=== PATIENT | female | born 1980 | race Caucasian/White ===

== ENCOUNTER 2018-08-06 17:50 | Emergency (ER) | payer MEDICARE ==
[~2018-08-06] VITALS: Ht 160 cm; Wt 68.5 kg
[~2018-08-06 17:50] MED LIST: QUET400T PO
[2018-08-06 18:31] VITALS: BP 171/116
[2018-08-06 19:59] LABS: APPEARANCE,URINE CLEAR (CLEAR); BILIRUBIN,URINE NEGATIVE (NEGATIVE); BLOOD, URINE NEGATIVE (NEGATIVE); COLOR,URINE YELLOW (YELLOW); LEUKOCYTE ESTERASE ,URINE TRACE (NEGATIVE); NITRITE, URINE NEGATIVE (NEGATIVE); UGLUCOSE NEGATIVE (NEGATIVE)
[2018-08-06 20:01] LABS: RBC,URINE 0-5 (RARE) /HPF (0-5); WBC,URINE 0-5 (RARE) /HPF (0-5)
[2018-08-06 21:02] VITALS: BP 177/118
== END 2018-08-06 21:02 | disposition left against medical advice (07) ==
LOC: MED 17:50
DX: O26.892 Other specified pregnancy related conditions, second trimester (principal); R10.32 Left lower quadrant pain; F31.9 Bipolar disorder, unspecified; I10 Essential (primary) hypertension; Z3A.16 16 weeks gestation of pregnancy; Z79.899 Other long term (current) drug therapy; Z53.21 Procedure and treatment not carried out due to patient leaving prior to being seen by health care provider
CPT/HCPCS: 81001

== ENCOUNTER 2018-10-26 14:45 | Inpatient (IN) | payer BC, MEDICAID ==
[~2018-10-26] VITALS: Ht 160 cm; Wt 68.0 kg
[2018-10-26 15:19] VITALS: BP 155/95
[2018-10-26 15:56] LABS: APPEARANCE,URINE CLEAR (CLEAR); BILIRUBIN,URINE NEGATIVE (NEGATIVE); BLOOD, URINE NEGATIVE (NEGATIVE); COLOR,URINE YELLOW (YELLOW); LEUKOCYTE ESTERASE ,URINE NEGATIVE (NEGATIVE); NITRITE, URINE NEGATIVE (NEGATIVE); RBC,URINE 0-5 (RARE) /HPF (0-5); UGLUCOSE NEGATIVE (NEGATIVE); WBC,URINE 0-5 (RARE) /HPF (0-5)
[2018-10-26 16:03] LABS: BARBITURATE, URINE NEG. ng/ml (NEG <=200); BENZODIAZEPINE, URINE NEG. ng/mL (NEG <=200); CANNABINOID, URINE NEG. ng/mL (NEG <=50); COCAINE, URINE NEG. ng/mL (NEG <=300); OPIATE, URINE NEG. ng/mL (NEG <=2000); PHENCYCLIDINE SCREEN,URINE NEG. ng/mL (NEG <=25)
[2018-10-26] MEDS ORDERED: QUET200T PO (16:20)
[2018-10-26] MEDS ORDERED: LABETALOL 200 MG TAB PO STA (16:30)
[2018-10-26] MEDS ORDERED: LABETALOL 200 MG TAB ONE (16:43)
[2018-10-26] MEDS ORDERED: LABETALOL 100 MG/20 ML VIAL ONE (16:45)
[2018-10-26 18:24] LABS: BASOPHILS % (AUTO) 0.4 % (0.0-2.0); EOSINOPHILS % (AUTO) 0.4 % (0.0-4.0); LYMPHOCYTES # (AUTO) 1.5 K/uL (2.5-16.5); LYMPHOCYTES % (AUTO) 14.1 % (20.5-51.1); MEAN CORPUSCULAR HEMOGLOBIN 18 pg (27-31); MEAN CORPUSCULAR HGB CONC 30 g/dL (33-37); MEAN CORPUSCULAR VOLUME 61.3 fL (80-94); MONOCYTES # (AUTO) 0.7 K/uL (0.8-1.0); MONOCYTES % (AUTO) 6.9 % (1.7-9.3); NEUTROPHILS # (AUTO) 8.2 K/uL (1.8-7.7); NEUTROPHILS % (AUTO) 78.2 % (42.2-75.2); PLATELET COUNT (AUTO) 186 K/uL (140-450); RED BLOOD CELL COUNT(AUTO) 3.25 MIL/uL (4.20-5.40); RED CELL DISTRIBUTION WIDTH 18.9 % (11.6-13.7); WHITE BLOOD COUNT (AUTO) 10.5 K/uL (4.8-10.8)
[2018-10-26 18:35] LABS: MAGNESIUM 1.6 mg/dL (1.8-2.4)
[2018-10-26 18:36] LABS: ANION GAP 12.4 (8-16); CREATININE 0.9 mg/dL (0.6-1.3); POTASSIUM 3.4 mmol/L (3.5-5.1)
[2018-10-26 18:42] LABS: PROTHROMBIN TIME 8.7 secs (10.8-13.4)
== END 2018-10-26 20:21 | disposition home or self-care (01) | DRG 566 ==
LOC: OBSVTOIN 14:45 → MLD 14:45
PROVIDERS: ADMIT Obstetrics & Gynecology; ATTEND Obstetrics & Gynecology
DX: O26.893 Other specified pregnancy related conditions, third trimester (principal); F15.10 Other stimulant abuse, uncomplicated; O10.913 Unspecified pre-existing hypertension complicating pregnancy, third trimester; R32 Unspecified urinary incontinence; O99.323 Drug use complicating pregnancy, third trimester; Z3A.36 36 weeks gestation of pregnancy
CPT/HCPCS: 36415; 76805; 80048; 80305; 81001; 82310; 83735; 85025; 85384; 85610; 85730; G0378; J3490; J7120; Q0092

== ENCOUNTER 2018-10-27 17:30 | Observation (INO) | payer BC ==
[~2018-10-27] VITALS: Ht 165.1 cm; Wt 95.3 kg
[~2018-10-27 17:30] MED LIST changes: +QUET200T PO
[2018-10-27 17:48] VITALS: BP 160/81
[2018-10-27 19:20] LABS: BARBITURATE, URINE NEG. ng/ml (NEG <=200); BENZODIAZEPINE, URINE NEG. ng/mL (NEG <=200); CANNABINOID, URINE NEG. ng/mL (NEG <=50); COCAINE, URINE NEG. ng/mL (NEG <=300); OPIATE, URINE NEG. ng/mL (NEG <=2000); PHENCYCLIDINE SCREEN,URINE NEG. ng/mL (NEG <=25)
[2018-10-27] MEDS ORDERED: LACTATED RINGERS 1,000 ML IV SCH (19:25)
[2018-10-27] MEDS ORDERED: LABETALOL 200 MG TAB ONE (19:39)
[2018-10-27] MEDS ORDERED: LABETALOL 100 MG/20 ML VIAL ONE (19:49)
[2018-10-27] MEDS ORDERED: LABETALOL 100 MG TAB ONE (20:04)
[2018-10-27] MEDS ORDERED: LABETALOL 200 MG TAB PO SCH (21:00)
--- NOTE | 2018-10-28 13:04 | NUR ---
10/26/17 SPOKE WITH [employer]. NOTES GO TO NEHA MONTELONGO. FAX REVIEW TO [phone] PHONE [phone]. FAXED FACE SHEET, LABS, MED SHEET, WRITEN MATERNAL H&P AND IMAGING AND WRITTEN DISCHARGE SUMMARY TO NE[facility] MONTELONGO
== END 2018-10-27 20:04 | disposition left against medical advice (07) ==
LOC: MLD 17:30
PROVIDERS: ADMIT Obstetrics & Gynecology; ATTEND Obstetrics & Gynecology
DX: O26.893 Other specified pregnancy related conditions, third trimester (principal); R10.30 Lower abdominal pain, unspecified; O10.913 Unspecified pre-existing hypertension complicating pregnancy, third trimester; O09.523 Supervision of elderly multigravida, third trimester; Z3A.36 36 weeks gestation of pregnancy
CPT/HCPCS: 80305; G0378; J3490; J7120

== ENCOUNTER 2021-08-21 07:41 | Emergency (ER) | payer BC, MEDICAID ==
[~2021-08-21] VITALS: Ht 160 cm; Wt 54.4 kg
[~2021-08-21 07:41] MED LIST changes: -QUET400T PO
[2021-08-21 07:52] VITALS: BP 140/92
--- NOTE | 2021-08-21 07:59 | NUR ---
Shana britt in [facility] - 08/21/21 at 0759 by [id number] TENT1
--- NOTE | 2021-08-21 08:07 | NUR ---
DR MADERA AT BEDSIDE.
--- NOTE | 2021-08-21 08:13 | NUR ---
40 Y/O F C/O COUGH, LOSS OF APPETITE AND TASE FOR 5 DAYS. ALSO CHILLS AND BODY ACH. SHE HAS BEEN TAKING DAYQUIL WITH NO RELIAVE. NO PMH OR ALLERIGES. PT STATING AT 99 ROOM AIR UPON ARRIVAL
--- NOTE | 2021-08-21 08:26 | NUR ---
NOVAL CORONAVIRUS RODNEY SWABED AND TAKEN TO THE LAB.
--- NOTE | 2021-08-21 08:34 | NUR ---
MECHANICAL ENGINEERING DIRECTOR AT PT BEDSIDE.
--- NOTE | 2021-08-21 08:34 | NUR ---
40 Y/O FEMALE C/O DRY NON-PRODUCTIVE COUGH, LOSS OF TASTE/SMELL, LOSS OF APPETITE, HEADAHCE AND BODY ACHE 9/10 X 5 DAYS. DENIES N/V, DENIES FEVER/CHILLS. DENIES PMH NKA
--- NOTE | 2021-08-21 09:07 | NUR ---
LABS DRAWN AND TAKEN TO THE LAB.
[2021-08-21] MEDS: NACL 0.9% 1,000 ML IV ONE (09:35)
[2021-08-21 09:40] LABS: BASOPHILS % (AUTO) 0.4 % (0.0-2.0); EOSINOPHILS % (AUTO) 0.1 % (0.0-4.0); HEMATOCRIT 32.2 % (36-48); HEMOGLOBIN 10.5 g/dL (12.0-16.0); LYMPHOCYTES # (AUTO) 1.1 K/uL (2.5-16.5); LYMPHOCYTES % (AUTO) 25.7 % (20.5-51.1); MEAN CORPUSCULAR HEMOGLOBIN 23 pg (27-31); MEAN CORPUSCULAR HGB CONC 33 g/dL (33-37); MEAN CORPUSCULAR VOLUME 70.3 fL (80-94); MONOCYTES # (AUTO) 0.4 K/uL (0.8-1.0); MONOCYTES % (AUTO) 10.3 % (1.7-9.3); NEUTROPHILS # (AUTO) 2.7 K/uL (1.8-7.7); NEUTROPHILS % (AUTO) 63.5 % (42.2-75.2); PLATELET COUNT (AUTO) 180 K/uL (140-450); RED BLOOD CELL COUNT(AUTO) 4.58 MIL/uL (4.20-5.40); RED CELL DISTRIBUTION WIDTH 17.7 % (11.6-13.7); WHITE BLOOD COUNT (AUTO) 4.2 K/uL (4.8-10.8)
[2021-08-21 09:46] LABS: ALBUMIN 2.9 g/dL (3.4-5.0); ANION GAP 12.8 (8-16); CARBON DIOXIDE 26.5 mmol/L (21-32); POTASSIUM 3.3 mmol/L (3.5-5.1); TOTAL BILIRUBIN 0.1 mg/dL (0.0-1.0)
--- NOTE | 2021-08-21 10:20 | NUR ---
PT REMOVED HER OWN ID BAND AND WANT IT TO LEAVE. DR MADERA AT BEDSIDE TAKLING TO PT. ADVISED TO STAY HOME FOR [address] MADERA GETTING DC ORDERS READY. Addendum: 08/21/21 at 1114 by [email or web address] PT REMOVED HER OWN IV BAND AND WANT IT TO LEAVE. DR MADERA AT BEDSIDE TAKLING TO PT. ADVISED TO STAY HOME FOR [address] MADERA GETTING DC ORDERS READY.
[2021-08-21] MEDS ORDERED: AMOX500C25 PO (10:28)
--- NOTE | 2021-08-21 10:34 | NUR ---
Patient discharged with v/s stable. Written and verbal after care instructions given and explained. Patient alert, oriented and verbalized understanding of instructions. Ambulatory with steady gait. All questions addressed prior to discharge. ID band removed. Patient advised to follow up with PMD. Rx of AMOXICILLIN given. Opportunity to ask questions provided and answered.
[2021-08-21] MEDS: POTASSIUM CHLORIDE 10 MEQ TABER PO ONE (11:13)
--- NOTE | 2021-08-21 11:14 | NUR ---
The patient's care was reviewed and supervised by Brittanie Zendejas RN.
--- NOTE | 2021-08-23 12:42 | NUR ---
LAB SENT POSITIVE COVID-19 RESULT TO INFECTION CONTROL TO CALL PT WITH RESULTS
== END 2021-08-21 10:33 | disposition home or self-care (01) ==
LOC: MED 07:41
DX: U07.1 COVID-19 (principal); J12.89 Other viral pneumonia; E87.6 Hypokalemia; I10 Essential (primary) hypertension; Z79.2 Long term (current) use of antibiotics; Z79.899 Other long term (current) drug therapy
CPT/HCPCS: 36415; 71045; 80053; 85025; 96360; 99285; J7030; Q0092; U0003